=== PATIENT | female | born 1965 | race Caucasian/White ===

== ENCOUNTER 2016-11-29 18:18 | Inpatient (IN) | payer MEDICAID, OTHER ==
[~2016-11-29] VITALS: Ht 170.2 cm; Wt 82.7 kg
[~2016-11-29 18:18] MED LIST: ARIP2 PO; NAPR-58 PO; PROZ10 PO
[2016-11-29 19:35] LABS: BASOPHILS % (AUTO) 0.5 % (0.0-2.0); EOSINOPHILS % (AUTO) 0.5 % (1.0-6.0); HEMATOCRIT 36.6 % (36-46); HEMOGLOBIN 11.9 g/dL (12.0-16.0); LYMPHOCYTES # (AUTO) 1.4 K/uL (1.0-4.8); LYMPHOCYTES % (AUTO) 11.1 % (22.0-44.0); MEAN CORPUSCULAR HEMOGLOBIN 27.8 pg (26.0-34.0); MEAN CORPUSCULAR HGB CONC 32.6 G/dL (31.0-37.0); MEAN CORPUSCULAR VOLUME 85 fL (80-100); MONOCYTES # (AUTO) 0.8 K/uL (0.1-1.0); NEUTROPHILS # (AUTO) 10.4 K/uL (1.8-7.7); NEUTROPHILS % (AUTO) 81.9 % (40.0-70.0); PLATELET COUNT (AUTO) 338 K/uL (150-450); RED CELL DISTRIBUTION WIDTH 14.9 % (11.5-14.5); WHITE BLOOD COUNT (AUTO) 12.7 K/uL (4.5-11.0)
[2016-11-29 19:42] LABS: ANION GAP 7 mmol/L (8-16); CALCIUM, TOTAL 8.9 mg/dL (8.8-10.5); CARBON DIOXIDE 29 mmol/L (22-29); CHLORIDE 97 mmol/L (98-107); CREATININE 0.85 mg/dL (0.60-1.30); GLOMERULAR FILTR. RATE CALC > 60 mL/min (>60); SODIUM SERUM 133 mmol/L (136-145); UREA NITROGEN, BLOOD 18 mg/dL (7-18)
[2016-11-29 19:49] LABS: ALANINE AMINOTRANSFERASE 18 U/L (12-78); ALBUMIN 3.4 g/dL (3.4-5.0); ASPARTATE AMINOTRANSFERASE 15 U/L (15-37); BILIRUBIN,TOTAL 0.5 mg/dL (0.1-1.0); TOTAL PROTEIN, SERUM 7.5 g/dL (6.4-8.2)
[2016-11-29] MEDS ORDERED: ZOLPIDEM TARTRATE 10 MG TABLET PO PRN (22:45)
[2016-11-29] MEDS ORDERED: HALOPERIDOL 5 MG TABLET PO PRN (22:45)
[2016-11-29] MEDS ORDERED: LORazepam 2 MG TABLET PO PRN (22:45)
[2016-11-30] MEDS ORDERED: IBUPROFEN 400 MG TABLET PO PRN (07:30)
[2016-11-30] MEDS ORDERED: ACETAMINOPHEN 325 MG TABLET PO PRN (07:30)
[2016-11-30] MEDS ORDERED: INFLUENZA VIRUS VACCINE QVS 2016-17 (3YR+)/PF 60 MCG/0.5 ML SYRINGE IM ONE (10:45)
[2016-11-30 11:22] VITALS: BP 131/57
[2016-11-30 16:05] LABS: AMYLASE 27 U/L (25-115)
[2016-11-30] MEDS: MIRTAZAPINE 15 MG TABLET PO SCH (21:24)
[2016-12-01] MEDS: MIRTAZAPINE 15 MG TABLET PO SCH (20:46)
[2016-12-02] MEDS ORDERED: BISACODYL 5 MG EC TABLET PO PRN (18:00)
[2016-12-02] MEDS: MIRTAZAPINE 15 MG TABLET PO SCH (20:35)
[2016-12-03] MEDS: MIRTAZAPINE 15 MG TABLET PO SCH (21:00)
[2016-12-04] MEDS: MIRTAZAPINE 15 MG TABLET PO SCH (20:25)
[2016-12-05 11:43] LABS: ANION GAP 5 mmol/L (8-16); CALCIUM, TOTAL 8.8 mg/dL (8.8-10.5); CARBON DIOXIDE 30 mmol/L (22-29); CHLORIDE 102 mmol/L (98-107); CREATININE 0.96 mg/dL (0.60-1.30); GLOMERULAR FILTR. RATE CALC > 60 mL/min (>60); SODIUM SERUM 137 mmol/L (136-145); UREA NITROGEN, BLOOD 12 mg/dL (7-18)
[2016-12-05] MEDS: MIRTAZAPINE 15 MG TABLET PO SCH (21:00)
[2016-12-06] MEDS: MIRTAZAPINE 15 MG TABLET PO SCH (20:05)
[2016-12-07] MEDS: MIRTAZAPINE 15 MG TABLET PO SCH (21:00)
[2016-12-08] MEDS: MIRTAZAPINE 15 MG TABLET PO SCH (21:43)
[2016-12-09] MEDS: MIRTAZAPINE 15 MG TABLET PO SCH (22:52)
[2016-12-10] MEDS ORDERED: MIRT15 PO (11:36)
== END 2016-12-10 14:40 | disposition home or self-care (01) | DRG 751 ==
LOC: EMS 18:23 → UNDOADMIN 11-30 00:14 → AHU 11-30 00:14 → 3EI 11-30 19:00
PROVIDERS: ADMIT Psychiatry & Neurology Child & Adolescent Psychiatry; ATTEND Psychiatry & Neurology Child & Adolescent Psychiatry
DX: F33.2 Major depressive disorder, recurrent severe without psychotic features (principal); R45.851 Suicidal ideations; Z91.19 Patient's noncompliance with other medical treatment and regimen; I10 Essential (primary) hypertension; D64.9 Anemia, unspecified; D72.829 Elevated white blood cell count, unspecified; F10.10 Alcohol abuse, uncomplicated; F41.9 Anxiety disorder, unspecified; M06.9 Rheumatoid arthritis, unspecified; F19.10 Other psychoactive substance abuse, uncomplicated; Z88.0 Allergy status to penicillin; Z79.899 Other long term (current) drug therapy; Z98.890 Other specified postprocedural states; Z71.41 Alcohol abuse counseling and surveillance of alcoholic; Z98.84 Bariatric surgery status; Z59.0 Homelessness; Z71.51 Drug abuse counseling and surveillance of drug abuser; Z28.21 Immunization not carried out because of patient refusal
CPT/HCPCS: 99285; G0480

== ENCOUNTER 2017-12-14 12:10 | Inpatient (IN) | payer MEDICAID, OTHER ==
[~2017-12-14] VITALS: Ht 170.2 cm; Wt 90.9 kg
[~2017-12-14 12:10] MED LIST changes: -ARIP2 PO; +MIRT15 PO; -NAPR-58 PO; -PROZ10 PO
[2017-12-14] MEDS ORDERED: ARIP10TA8 PO (12:34)
[2017-12-14] MEDS ORDERED: PROZ10 PO (12:34)
[2017-12-14 13:02] LABS: BASOPHILS % (AUTO) 0.6 % (0.0-2.0); EOSINOPHILS % (AUTO) 0.7 % (1.0-6.0); HEMATOCRIT 40.3 % (36-46); HEMOGLOBIN 14.1 g/dL (12.0-16.0); LYMPHOCYTES # (AUTO) 1.2 K/uL (1.0-4.8); LYMPHOCYTES % (AUTO) 11.5 % (22.0-44.0); MEAN CORPUSCULAR HEMOGLOBIN 30.2 pg (26.0-34.0); MEAN CORPUSCULAR HGB CONC 34.9 G/dL (31.0-37.0); MEAN CORPUSCULAR VOLUME 87 fL (80-100); MONOCYTES # (AUTO) 0.7 K/uL (0.1-1.0); MONOCYTES % (AUTO) 6.8 % (2.0-9.0); NEUTROPHILS # (AUTO) 8.5 K/uL (1.8-7.7); NEUTROPHILS % (AUTO) 80.4 % (40.0-70.0); PLATELET COUNT (AUTO) 226 K/uL (150-450); RED BLOOD CELL COUNT(AUTO) 4.66 MIL/uL (4.00-5.20); RED CELL DISTRIBUTION WIDTH 14.5 % (11.5-14.5)
[2017-12-14 13:05] LABS: ANION GAP 7 mmol/L (8-16); CALCIUM, TOTAL 9.2 mg/dL (8.8-10.5); CARBON DIOXIDE 28 mmol/L (22-29); CHLORIDE 99 mmol/L (98-107); CREATININE 1.08 mg/dL (0.60-1.30); GLOMERULAR FILTR. RATE CALC 53 mL/min (>60); GLUCOSE,RANDOM 135 mg/dL (70-110); POTASSIUM 4.1 mmol/L (3.5-5.1); SODIUM SERUM 134 mmol/L (136-145); UREA NITROGEN, BLOOD 19 mg/dL (7-18)
[2017-12-14 13:15] LABS: ALANINE AMINOTRANSFERASE 14 U/L (12-78); ALBUMIN 3.4 g/dL (3.4-5.0); ALKALINE PHOSPHATASE 110 U/L (46-116); ASPARTATE AMINOTRANSFERASE 14 U/L (15-37); BILIRUBIN,TOTAL 0.7 mg/dL (0.1-1.0); TOTAL PROTEIN, SERUM 7.5 g/dL (6.4-8.2)
[2017-12-14] MEDS ORDERED: LORazepam 2 MG TABLET PO PRN (14:00)
[2017-12-14] MEDS ORDERED: ZOLPIDEM TARTRATE 10 MG TABLET PO PRN (14:00)
[2017-12-14] MEDS ORDERED: HALOPERIDOL 5 MG TABLET PO PRN (14:00)
[2017-12-14 14:23] LABS: AMPHET/METH SCREEN,URINE NEGATIVE (NEGATIVE); BARBITURATE SCREEN, URINE NEGATIVE (NEGATIVE); BENZODIAZEPINES SCREEN,URINE NEGATIVE (NEGATIVE); CANNABINOID SCREEN,URINE NEGATIVE (NEGATIVE); COCAINE SCREEN,URINE NEGATIVE (NEGATIVE); METHADONE SCREEN, URINE NEGATIVE (NEGATIVE); OPIATE SCREEN,URINE NEGATIVE (NEGATIVE); PHENCYCLIDINE SCREEN,URINE NEGATIVE (NEGATIVE)
[2017-12-14] MEDS: MIRTAZAPINE 15 MG TABLET PO SCH (21:41)
[2017-12-15] MEDS ORDERED: INFLUENZA VIRUS VACCINE QVS 2017-18 (3YR+)/PF 60 MCG/0.5 ML SYRINGE IM ONE (04:00)
[2017-12-15] MEDS: ARIPiprazole 10 MG TABLET PO SCH (09:15)
[2017-12-15] MEDS: FLUoxetine HCL 20 MG CAPSULE PO SCH (09:16)
[2017-12-15] MEDS ORDERED: PETROLATUM,WHITE 71 GM JELLY TP PRN (09:45)
[2017-12-15] MEDS ORDERED: LOPERAMIDE HCL 2 MG CAPSULE PO PRN (09:45)
[2017-12-15] MEDS ORDERED: MAGNESIUM HYDROXIDE SUSPENSION 30 ML UDCUP PO PRN (09:45)
[2017-12-15] MEDS ORDERED: BENZOCAINE/MENTHOL LOZENGE [8 LOZENGES/PACKET] MM PRN (09:45)
[2017-12-15] MEDS ORDERED: BACITRACIN 28.4 GM OINTMENT TP PRN (09:45)
[2017-12-15] MEDS ORDERED: ONDANSETRON HCL 4 MG TABLET PO PRN (09:45)
[2017-12-15] MEDS ORDERED: CloNIDine HCL 0.1 MG TABLET PO PRN (09:45)
[2017-12-15] MEDS ORDERED: ACETAMINOPHEN 325 MG TABLET PO PRN (09:45)
[2017-12-15] MEDS ORDERED: IBUPROFEN 600 MG TABLET PO PRN (09:45)
[2017-12-15] MEDS ORDERED: ALBUTEROL SULFATE HFA 90 MCG/PUFF 8 GM INHALER IH PRN (09:45)
[2017-12-15] MEDS ORDERED: MAG HYDROX/AL HYDROX/SIMETH ES 30 ML SUSPENSION UDCUP PO PRN (09:45)
[2017-12-15] MEDS ORDERED: BENZOCAINE/MENTHOL LOZENGE MM PRN (09:45)
[2017-12-15] MEDS: MIRTAZAPINE 15 MG TABLET PO SCH (21:45)
[2017-12-16 07:11] LABS: HEMOGLOBIN A1C 5.6 % (4.5-6.2)
[2017-12-16 07:16] LABS: ANION GAP 5 mmol/L (8-16); CALCIUM, TOTAL 8.8 mg/dL (8.8-10.5); CARBON DIOXIDE 30 mmol/L (22-29); CHLORIDE 103 mmol/L (98-107); CHOL/HDL RATIO 2.1 (3.9-5.7); CHOLESTEROL 121 mg/dL (131-200); CREATININE 0.73 mg/dL (0.60-1.30); GLOMERULAR FILTR. RATE CALC > 60 mL/min (>60); GLUCOSE,RANDOM 84 mg/dL (70-110); HDL CHOLESTEROL 59 mg/dL (40-60); LDL CHOL (CALC.) 54 mg/dL (0-130); POTASSIUM 4.3 mmol/L (3.5-5.1); SODIUM SERUM 138 mmol/L (136-145); THYROID STIMULATING HORMONE 2.57 uIU/mL (0.36-3.74); TRIGLYCERIDES 39 mg/dL (15-150); UREA NITROGEN, BLOOD 14 mg/dL (7-18)
[2017-12-16] MEDS: CHOLECALCIFEROL (VIT D3) 1,000 UNITS TABLET PO SCH (09:52)
[2017-12-16] MEDS: ARIPiprazole 10 MG TABLET PO SCH (09:52)
[2017-12-16] MEDS: FLUoxetine HCL 20 MG CAPSULE PO SCH (09:52)
[2017-12-16] MEDS: MIRTAZAPINE 15 MG TABLET PO SCH (20:25)
[2017-12-17] MEDS: FLUoxetine HCL 20 MG CAPSULE PO SCH (11:11)
[2017-12-17] MEDS: ARIPiprazole 10 MG TABLET PO SCH (11:11)
[2017-12-17] MEDS: CHOLECALCIFEROL (VIT D3) 1,000 UNITS TABLET PO SCH (11:12)
[2017-12-17] MEDS: MIRTAZAPINE 15 MG TABLET PO SCH (21:08)
[2017-12-18 09:10] VITALS: BP 104/56
[2017-12-18] MEDS: ARIPiprazole 10 MG TABLET PO SCH (09:26)
[2017-12-18] MEDS: FLUoxetine HCL 20 MG CAPSULE PO SCH (09:27)
[2017-12-18] MEDS: CHOLECALCIFEROL (VIT D3) 1,000 UNITS TABLET PO SCH (09:27)
[2017-12-18] MEDS ORDERED: FLUoxetine HCL 20 MG CAPSULE PO ONE (10:15)
[2017-12-18] MEDS: MIRTAZAPINE 15 MG TABLET PO SCH (20:46)
[2017-12-19] MEDS: CHOLECALCIFEROL (VIT D3) 1,000 UNITS TABLET PO SCH (09:57)
[2017-12-19] MEDS: ARIPiprazole 10 MG TABLET PO SCH (09:57)
[2017-12-19] MEDS: FLUoxetine HCL 20 MG CAPSULE PO SCH (09:58)
[2017-12-19] MEDS: MIRTAZAPINE 15 MG TABLET PO SCH (20:43)
[2017-12-20] MEDS: FLUoxetine HCL 20 MG CAPSULE PO SCH (09:20)
[2017-12-20] MEDS: ARIPiprazole 10 MG TABLET PO SCH (09:20)
[2017-12-20] MEDS: CHOLECALCIFEROL (VIT D3) 1,000 UNITS TABLET PO SCH (09:20)
[2017-12-20] MEDS: MIRTAZAPINE 15 MG TABLET PO SCH (20:39)
[2017-12-21] MEDS: CHOLECALCIFEROL (VIT D3) 1,000 UNITS TABLET PO SCH (08:26)
[2017-12-21] MEDS: ARIPiprazole 10 MG TABLET PO SCH (08:26)
[2017-12-21] MEDS: FLUoxetine HCL 20 MG CAPSULE PO SCH (08:26)
[2017-12-21] MEDS ORDERED: FLUO-191 PO (11:48)
[2017-12-21] MEDS: CALCIUM OYSTER SHELL 500 MG TABLET PO SCH ×2 (13:06→16:56)
[2017-12-21 19:27] VITALS: BP 126/71
[2017-12-21] MEDS: MIRTAZAPINE 15 MG TABLET PO SCH (20:40)
[2017-12-22 07:31] LABS: ANION GAP 7 mmol/L (8-16); CALCIUM, TOTAL 9.1 mg/dL (8.8-10.5); CARBON DIOXIDE 29 mmol/L (22-29); CHLORIDE 103 mmol/L (98-107); CREATININE 0.83 mg/dL (0.60-1.30); GLOMERULAR FILTR. RATE CALC > 60 mL/min (>60); GLUCOSE,RANDOM 82 mg/dL (70-110); POTASSIUM 4.3 mmol/L (3.5-5.1); SODIUM SERUM 139 mmol/L (136-145); UREA NITROGEN, BLOOD 13 mg/dL (7-18)
[2017-12-22 07:40] LABS: BASOPHILS % (AUTO) 0.7 % (0.0-2.0); HEMATOCRIT 38.2 % (36-46); HEMOGLOBIN 13.7 g/dL (12.0-16.0); LYMPHOCYTES # (AUTO) 2.3 K/uL (1.0-4.8); LYMPHOCYTES % (AUTO) 26.9 % (22.0-44.0); MEAN CORPUSCULAR VOLUME 86 fL (80-100); MONOCYTES # (AUTO) 0.9 K/uL (0.1-1.0); MONOCYTES % (AUTO) 9.9 % (2.0-9.0); NEUTROPHILS # (AUTO) 5.2 K/uL (1.8-7.7); NEUTROPHILS % (AUTO) 60.5 % (40.0-70.0); PLATELET COUNT (AUTO) 288 K/uL (150-450); RED BLOOD CELL COUNT(AUTO) 4.43 MIL/uL (4.00-5.20); RED CELL DISTRIBUTION WIDTH 14.3 % (11.5-14.5)
[2017-12-22 08:10] VITALS: BP 129/86
[2017-12-22] MEDS: CALCIUM OYSTER SHELL 500 MG TABLET PO SCH ×4 (09:00→16:53)
[2017-12-22] MEDS: MULTIVITAMINS WITH MINERALS, THERAPEUTIC TABLET PO SCH (09:00)
[2017-12-22] MEDS: CYANOCOBALAMIN 500 MCG TABLET PO SCH (09:00)
[2017-12-22] MEDS: ARIPiprazole 10 MG TABLET PO SCH (09:21)
[2017-12-22] MEDS: FLUoxetine HCL 20 MG CAPSULE PO SCH (09:21)
[2017-12-22] MEDS: CHOLECALCIFEROL (VIT D3) 1,000 UNITS TABLET PO SCH (09:21)
[2017-12-22] MEDS: MIRTAZAPINE 15 MG TABLET PO SCH (20:02)
[2017-12-23 08:00] VITALS: BP 119/70
[2017-12-23] MEDS: ARIPiprazole 10 MG TABLET PO SCH (09:34)
[2017-12-23] MEDS: CHOLECALCIFEROL (VIT D3) 1,000 UNITS TABLET PO SCH (09:34)
[2017-12-23] MEDS: FLUoxetine HCL 20 MG CAPSULE PO SCH (09:34)
[2017-12-23] MEDS: MULTIVITAMINS WITH MINERALS, THERAPEUTIC TABLET PO SCH (09:35)
[2017-12-23] MEDS: CALCIUM OYSTER SHELL 500 MG TABLET PO SCH ×2 (09:36→12:47)
[2017-12-23] MEDS: CYANOCOBALAMIN 500 MCG TABLET PO SCH (09:37)
[2017-12-23] MEDS ORDERED: FLUO-191 PO (12:19)
[2017-12-23] MEDS ORDERED: OS500 PO (12:39)
[2017-12-23] MEDS ORDERED: CYAN1TAB44 PO (12:40)
[2017-12-23] MEDS ORDERED: VITAD1000 PO (12:40)
[2017-12-23] MEDS ORDERED: MV-M1TAB2 PO (12:41)
== END 2017-12-23 14:20 | disposition home or self-care (01) | DRG 751 ==
LOC: EMS 12:12 → 3EI 16:08
PROC: 3E0234Z Introduction of Serum, Toxoid and Vaccine into Muscle, Percutaneous Approach (ICD-10-PCS; principal; 2017-12-15)
DX: F33.2 Major depressive disorder, recurrent severe without psychotic features (principal); E87.1 Hypo-osmolality and hyponatremia; R45.851 Suicidal ideations; F41.9 Anxiety disorder, unspecified; G47.00 Insomnia, unspecified; M19.90 Unspecified osteoarthritis, unspecified site; M06.9 Rheumatoid arthritis, unspecified; E55.9 Vitamin D deficiency, unspecified; R73.9 Hyperglycemia, unspecified; R13.10 Dysphagia, unspecified; E66.9 Obesity, unspecified; N28.9 Disorder of kidney and ureter, unspecified; Z59.0 Homelessness; Z98.84 Bariatric surgery status; Z88.0 Allergy status to penicillin; Z79.899 Other long term (current) drug therapy; Z91.5 Personal history of self-harm; Z23 Encounter for immunization; Z68.31 Body mass index [BMI] 31.0-31.9, adult
CPT/HCPCS: 82306; 83036; 84443; 99285; G0480

== ENCOUNTER 2018-01-01 11:36 | Inpatient (IN) | payer MEDICAID ==
[~2018-01-01] VITALS: Ht 170.2 cm; Wt 89.9 kg
[~2018-01-01 11:36] MED LIST changes: +ARIP10TA8 PO; +CYAN1TAB44 PO; +FLUO-191 PO; +MV-M1TAB2 PO; +OS500 PO; +VITAD1000 PO
[2018-01-01 11:50] VITALS: BP 138/58
[2018-01-01] MEDS ORDERED: HALOPERIDOL 5 MG TABLET PO PRN (12:15)
[2018-01-01] MEDS ORDERED: ZOLPIDEM TARTRATE 10 MG TABLET PO PRN (12:15)
[2018-01-01] MEDS ORDERED: LORazepam 2 MG TABLET PO PRN (12:15)
[2018-01-01] MEDS ORDERED: PNEUMOCOCCAL VACCINE POLYVALENT 0.5 ML VIAL [PPSV23] IM ONE (13:00)
[2018-01-01] MEDS: MIRTAZAPINE 15 MG TABLET PO SCH (20:39)
[2018-01-02] MEDS ORDERED: ONDANSETRON HCL 4 MG TABLET PO PRN (09:00)
[2018-01-02] MEDS ORDERED: LOPERAMIDE HCL 2 MG CAPSULE PO PRN (09:00)
[2018-01-02] MEDS ORDERED: BENZOCAINE/MENTHOL LOZENGE MM PRN (09:00)
[2018-01-02] MEDS ORDERED: ALBUTEROL SULFATE HFA 90 MCG/PUFF 8 GM INHALER IH PRN (09:00)
[2018-01-02] MEDS ORDERED: MAG HYDROX/AL HYDROX/SIMETH ES 30 ML SUSPENSION UDCUP PO PRN (09:00)
[2018-01-02] MEDS: FLUoxetine HCL 20 MG CAPSULE PO SCH ×2 (09:00→11:29)
[2018-01-02] MEDS ORDERED: MAGNESIUM HYDROXIDE SUSPENSION 30 ML UDCUP PO PRN (09:00)
[2018-01-02] MEDS ORDERED: IBUPROFEN 600 MG TABLET PO PRN (09:00)
[2018-01-02] MEDS: ARIPiprazole 10 MG TABLET PO SCH ×2 (09:00→11:29)
[2018-01-02] MEDS ORDERED: ACETAMINOPHEN 325 MG TABLET PO PRN (09:00)
[2018-01-02] MEDS ORDERED: BACITRACIN 28.4 GM OINTMENT TP PRN (09:00)
[2018-01-02] MEDS ORDERED: PETROLATUM,WHITE 71 GM JELLY TP PRN (09:00)
[2018-01-02] MEDS ORDERED: CloNIDine HCL 0.1 MG TABLET PO PRN (09:00)
[2018-01-02] MEDS ORDERED: FLUoxetine HCL 20 MG CAPSULE PO SCH (09:00)
[2018-01-02] MEDS: CHOLECALCIFEROL (VIT D3) 1,000 UNITS TABLET PO SCH ×2 (11:29→11:40)
[2018-01-02] MEDS: MIRTAZAPINE 15 MG TABLET PO SCH (21:00)
[2018-01-03 07:39] VITALS: BP 126/83
[2018-01-03] MEDS ORDERED: FLUoxetine HCL 20 MG CAPSULE PO SCH (09:00)
[2018-01-03] MEDS: ARIPiprazole 10 MG TABLET PO SCH (09:00)
[2018-01-03] MEDS: FLUoxetine HCL 20 MG CAPSULE PO SCH (09:00)
[2018-01-03] MEDS: MIRTAZAPINE 15 MG TABLET PO SCH (21:00)
[2018-01-04] MEDS: FLUoxetine HCL 20 MG CAPSULE PO SCH (09:00)
[2018-01-04] MEDS: CHOLECALCIFEROL (VIT D3) 1,000 UNITS TABLET PO SCH (09:00)
[2018-01-04] MEDS: ARIPiprazole 10 MG TABLET PO SCH (09:00)
[2018-01-04] MEDS: MIRTAZAPINE 15 MG TABLET PO SCH (21:00)
[2018-01-05] MEDS: FLUoxetine HCL 20 MG CAPSULE PO SCH (08:13)
[2018-01-05] MEDS: ARIPiprazole 10 MG TABLET PO SCH (08:13)
[2018-01-05] MEDS: CHOLECALCIFEROL (VIT D3) 1,000 UNITS TABLET PO SCH (08:13)
[2018-01-05] MEDS: MIRTAZAPINE 15 MG TABLET PO SCH (21:00)
[2018-01-06] MEDS: FLUoxetine HCL 20 MG CAPSULE PO SCH (10:28)
[2018-01-06] MEDS: ARIPiprazole 10 MG TABLET PO SCH (10:28)
[2018-01-06] MEDS: CHOLECALCIFEROL (VIT D3) 1,000 UNITS TABLET PO SCH (10:29)
[2018-01-06 16:28] VITALS: BP 109/74
[2018-01-06] MEDS: MIRTAZAPINE 15 MG TABLET PO SCH (20:29)
[2018-01-07] MEDS: CHOLECALCIFEROL (VIT D3) 1,000 UNITS TABLET PO SCH ×2 (08:22→09:00)
[2018-01-07] MEDS: ARIPiprazole 10 MG TABLET PO SCH ×2 (08:22→09:00)
[2018-01-07] MEDS: FLUoxetine HCL 20 MG CAPSULE PO SCH ×2 (08:23→09:00)
[2018-01-07] MEDS: MIRTAZAPINE 15 MG TABLET PO SCH ×2 (20:36→21:00)
[2018-01-08] MEDS: FLUoxetine HCL 20 MG CAPSULE PO SCH ×2 (08:29→08:41)
[2018-01-08] MEDS: ARIPiprazole 10 MG TABLET PO SCH ×2 (08:30→08:41)
[2018-01-08] MEDS: CHOLECALCIFEROL (VIT D3) 1,000 UNITS TABLET PO SCH ×2 (08:30→08:41)
[2018-01-08] MEDS: MIRTAZAPINE 15 MG TABLET PO SCH (20:22)
[2018-01-09] MEDS: CHOLECALCIFEROL (VIT D3) 1,000 UNITS TABLET PO SCH (08:42)
[2018-01-09] MEDS ORDERED: ARIPiprazole 10 MG TABLET PO SCH (12:00)
[2018-01-09] MEDS ORDERED: FLUoxetine HCL 20 MG CAPSULE PO SCH (12:00)
== END 2018-01-09 13:22 | disposition home or self-care (01) | DRG 751 ==
LOC: B2S 12:18
DX: F33.2 Major depressive disorder, recurrent severe without psychotic features (principal); R45.851 Suicidal ideations; E55.9 Vitamin D deficiency, unspecified; E66.9 Obesity, unspecified; F41.9 Anxiety disorder, unspecified; G47.00 Insomnia, unspecified; M06.9 Rheumatoid arthritis, unspecified; Z53.20 Procedure and treatment not carried out because of patient's decision for unspecified reasons; Z76.5 Malingerer [conscious simulation]; Z79.899 Other long term (current) drug therapy; Z98.84 Bariatric surgery status; Z88.0 Allergy status to penicillin
CPT/HCPCS: 87081